=== PATIENT | male | born 2000 | race Caucasian/White ===

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

== ENCOUNTER 2021-07-23 16:35 | Emergency (ER) | payer OTHER ==
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
[2021-07-23 16:49] VITALS: O2SAT 98
[2021-07-23 18:14] VITALS: BP 125/76; PULSE 81
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
== END 2021-07-23 18:17 | disposition home or self-care (01) ==
LOC: ED 16:35
DX: S09.90XA Unspecified injury of head, initial encounter (principal); W10.9XXA Fall (on) (from) unspecified stairs and steps, initial encounter; R41.0 Disorientation, unspecified; R51.9 Headache, unspecified; R11.0 Nausea; Z72.0 Tobacco use; Z28.310 Unvaccinated for COVID-19
CPT/HCPCS: 70450; 99283

== ENCOUNTER 2021-09-14 19:56 | Emergency (ER) | payer OTHER ==
[2021-09-14 21:18] LABS: Mucus SLIGHT /HPF (NEGATIVE)
[2021-09-14 21:21] LABS: Appearance CLEAR (CLEAR); Bilirubin NEGATIVE (NEGATIVE); Dipstick done @ ? MAIN LAB; Glucose NEGATIVE (NEGATIVE); Ketones NEGATIVE (NEGATIVE); Nitrite NEGATIVE (NEGATIVE); Ph 6.5 (5-6); Protein,Urine Dip NEGATIVE (Negative); RBC NEGATIVE Ery/ul (0-5); Specific Gravity >=1.030 (1.005-1.025); Urobilinogen 0.2 mg/dL (0-1)
[2021-09-14 21:22] LABS: Urine Cultured Indicated? NO
[2021-09-14 21:38] LABS: Absolute Neutrophil Ct (ANC) 4.58 x10^3/uL (1.4-6.9); Basophil (Absolute #) 0.07 x10^3/uL (0-0.4); Eosinophil % 2.1 % (0.00-5.0); Eosinophil (Absolute #) 0.15 x10^3/uL (0-0.5); Hematocrit 43.4 % (42-50); Hemoglobin 14.8 g/dL (12.5-18.0); Lymphocyte (Absolute #) 1.75 x10^3/uL (1.0-4.6); Lymphocytes % 24.3 % (24.0-44.0); Mean Cell Volume 88.2 fL (78-100); Mean Corpuscular Hemoglobin 30.1 pg (26-32); Mean Corpuscular Hgb Concent. 34.1 g/dL (32-36); Mean Platelet Volume 11.3 fL (7.5-11.0); Monocyte (Absolute #) 0.63 x10^3/uL (0.0-1.3); Monocytes % 8.8 % (0.0-12.0); Neutrophil % 63.5 % (36.0-66.0); Platelet Count 194 x10^3/uL (150-450); Red Blood Count 4.92 x10^6/uL (4.1-5.6); White Blood Count 7.2 x10^3/uL (4.0-10.5)
[2021-09-14 21:53] LABS: ALBUMIN 4.2 g/dL (3.5-5.0); ALKALINE PHOSPHATASE 51 U/L (38-126); ANION GAP 11.3 MEQ/L (5-15); BLOOD UREA NITROGEN 14 mg/dL (9-20); CHLORIDE 102 mmol/L (98-107); Calcium 9.3 mg/dL (8.4-10.2); Carbon Dioxide 28 mmol/L (22-30); Creatinine 1 0.84 mg/dL (0.66-1.25); EST GLOMERULAR FILTRATION RATE > 60.0 ML/MIN; Glucose 99 mg/dL (74-106); Potassium 4.2 mmol/L (3.5-5.1); SGOT/AST 18 U/L (17-59); SGPT/ALT 13 U/L (0-50); SODIUM 138 mmol/L (137-145); Total Protein 7.2 g/dL (6.3-8.2)
--- NOTE | 2021-09-14 22:15 | ERPHSYRPT ---
- History of Present Illness Time Seen by Provider: 09/14/21 22:00 Historian: patient Exam Limitations: no limitations Patient Subjective Stated Complaint: maurice when I pee at times, flank pain, lower abd pain, frequent urination Triage Nursing Assessment: Pt ambulated into ER without diff. Pt c/o frequent urination, burning on urination, and difficulty getting steam going at times. Pt c/o flank pain and lower abd pain which started today. Pt has hx of chlymadia a few months ago but was retested and it came back negative. Pt has pink rash/irritation to bilat inner thighs. Physician History: Patient is a 21-year-old white male who presents with complaints of urinary frequency dysuria urgency and trouble starting his stream. He denies any fever chills or sweats he has some abdominal pain which is primarily suprapubic and bilateral flank. He did have an episode of chlamydia which was treated in April of this year. He denies any penile discharge. Activities at Onset: none Quality: cramping, stabbing Abdominal Pain Onset Location: suprapubic Severity of Pain-Max: moderate Severity of Pain-Current: mild Modifying Factors: Improves With: urinating Allergies/Adverse Reactions: No Known Drug Allergies Allergy (Verified 09/14/21 20:46) Hx Tetanus, Diphtheria Vaccination/Date Given: No Hx Influenza Vaccination/Date Given: No Hx Pneumococcal Vaccination/Date Given: No Immunizations Up to Date: No Travel Risk - International Travel Have you traveled outside of the country in past 3 weeks: No - Coronavirus Screening Are you exhibiting any of the following symptoms?: No Close contact with a COVID-19 positive Pt in past 14-21 Days: No - Vaccine Status Have you recieved a Covid-19 vaccination: No - Review of Systems Constitutional: No Fever, No Chills Eyes: No Symptoms Ears, Nose, & Throat: No Symptoms Respiratory: No Cough, No Dyspnea Cardiac: No Chest Pain, No Edema, No Syncope Abdominal/Gastrointestinal: Abdominal Pain, No Nausea, No Vomiting, No Diarrhea Genitourinary Symptoms: Dysuria, Frequency, Urgency, No Penile Discharge Musculoskeletal: No Back Pain, No Neck Pain Skin: No Rash Neurological: No Dizziness, No Focal Weakness, No Sensory Changes Psychological: No Symptoms Endocrine: No Symptoms All Other Systems: Reviewed and Negative - Past Medical History Pertinent Past Medical History: No Psycho-Social History: Anxiety, Attention Deficit Disorder, Depression - Past Surgical History Past Surgical History: Yes Other Surgical History: cyst removed - Social History Smoking Status: Current every day smoker How long have you smoked: 8 yrs Exposure to second hand smoke: No Drug Use: none Patient Lives Alone: No - Nursing Vital Signs Nursing Vital Signs: Initial Vital Signs Temperature 98.0 F 09/14/21 20:34 Pulse Rate 70 09/14/21 20:34 Respiratory Rate 18 09/14/21 20:34 Blood Pressure 133/95 09/14/21 20:34 O2 Sat by Pulse Oximetry 98 09/14/21 20:34 Pain Scale Pain Intensity 0 - Physical Exam General Appearance: mild distress, alert Eye Exam: PERRL/EOMI, eyes nml inspection Ears, Nose, Throat Exam: normal ENT inspection, pharynx normal, moist mucous membranes Neck Exam: normal inspection, non-tender, supple, full range of motion Respiratory Exam: normal breath sounds, lungs clear, No respiratory distress Cardiovascular Exam: regular rate/rhythm, normal heart sounds Gastrointestinal/Abdomen Exam: soft, No tenderness, No mass Male Genitalia Exam: normal genitalia, No penile discharge Back Exam: normal inspection, normal range of motion, No CVA tenderness, No vertebral tenderness Extremity Exam: normal inspection, normal range of motion, pelvis stable Neurologic Exam: alert, oriented x 3, cooperative, normal mood/affect, nml cerebellar function, sensation nml, No motor deficits Skin Exam: normal color, warm, dry SpO2: 96 - Course Nursing assessment & vital signs reviewed: Yes - CT Exams Abdomen/Pelvis CT Interpretation: Tele-radiologist Report, No appendicitis, Other (No acute intra-abdominal process identified) Ordered Tests: Active Orders 24 hr Category Date Time Status ABDOMEN AND PELVIS W/0 CONTRAS [CT] Stat Exams 09/14/21 21:24 Taken CBC W DIFF Stat Lab 09/14/21 21:36 Completed CMP Stat Lab 09/14/21 21:36 Completed UA W/RFX CULTURE Stat Lab 09/14/21 20:32 Completed Lab/Rad Data: Laboratory Result Diagrams 09/14/21 21:36 09/14/21 21:36 Laboratory Results 09/14/21 09/14/21 09/14/21 Range/Units 21:36 21:36 20:32 WBC 7.2 (4.0-10.5) x10^3/uL RBC 4.92 (4.1-5.6) x10^6/uL Hgb 14.8 (12.5-18.0) g/dL Hct 43.4 (42-50) % MCV 88.2 (78-100) fL MCH 30.1 (26-32) pg MCHC 34.1 (32-36) g/dL RDW 12.0 (11.5-14.0) % Plt Count 194 (150-450) x10^3/uL MPV 11.3 H (7.5-11.0) fL Gran % 63.5 (36.0-66.0) % Immature Gran % (Auto) 0.3 (0.00-0.4) % Nucleat RBC Rel Count 0.0 (0.00-0.1) % Eos # (Auto) 0.15 (0-0.5) x10^3/uL Immature Gran # (Auto) 0.02 (0.00-0.03) x10^3u/L Absolute Lymphs (auto) 1.75 (1.0-4.6) x10^3/uL Absolute Monos (auto) 0.63 (0.0-1.3) x10^3/uL Absolute Nucleated RBC 0.00 (0.00-0.01) x10^3u/L Lymphocytes % 24.3 (24.0-44.0) % Monocytes % 8.8 (0.0-12.0) % Eosinophils % 2.1 (0.00-5.0) % Basophils % 1.0 (0.0-0.4) % Absolute Granulocytes 4.58 (1.4-6.9) x10^3/uL Basophils # 0.07 (0-0.4) x10^3/uL Sodium 138 (137-145) mmol/L Potassium 4.2 (3.5-5.1) mmol/L Chloride 102 (98-107) mmol/L Carbon Dioxide 28 (22-30) mmol/L Anion Gap 11.3 (5-15) MEQ/L BUN 14 (9-20) mg/dL Creatinine 0.84 (0.66-1.25) mg/dL Estimated GFR > 60.0 ML/MIN Glucose 99 (74-106) mg/dL Calcium 9.3 (8.4-10.2) mg/dL Total Bilirubin 0.40 (0.2-1.3) mg/dL AST 18 (17-59) U/L ALT 13 (0-50) U/L Alkaline Phosphatase 51 (38-126) U/L Serum Total Protein 7.2 (6.3-8.2) g/dL Albumin 4.2 (3.5-5.0) g/dL Urinalys Dipstick Clnc MAIN LAB Urine Color YELLOW (YELLOW) Urine Appearance CLEAR (CLEAR) Urine pH 6.5 (5-6) Ur Specific [place] >=1.030 (1.005-1.025) POC Urine Protein Conf NEGATIVE (Negative) Urine Ketones NEGATIVE (NEGATIVE) Urine Nitrite NEGATIVE (NEGATIVE) Urine Bilirubin NEGATIVE (NEGATIVE) Urine Urobilinogen 0.2 (0-1) mg/dL Urine Leukocytes NEGATIVE (NEGATIVE) Urine WBC (Auto) NONE (0-5) /HPF Urine RBC (Auto) NONE (0-2) /HPF U Epithel Cells (Auto) NONE (FEW) /HPF Urine Bacteria (Auto) NONE (NEGATIVE) /HPF Urine RBC NEGATIVE (0-5) Ezra/ul Urine Mucus (Auto) SLIGHT (NEGATIVE) /HPF Ur Culture Indicated? NO Urine Glucose NEGATIVE (NEGATIVE) mg/dL - Progress Progress: unchanged - Departure Departure Disposition: Home Clinical Impression: Dysuria Condition: Stable Critical Care Time: No Referrals: SCOTT ZAMAN VALUE ENGINEER [Primary Care Provider] - Follow up/PCP as directed Instructions: Dysuria, Adult (DC) Prescriptions: Ciprofloxacin [Cipro 500 MG] 500 mg PO BID #14 tablet
[2021-09-14 22:31] VITALS: BP 123/79; PULSE 70
[2021-09-14 22:36] VITALS: O2SAT 96
--- NOTE | 2021-09-15 09:41 | XRAY ---
Indication: Abdomen pain and diarrhea. Difficulty urinating. Multiple contiguous axial images obtained through the abdomen and pelvis without contrast. Impression: None Lung bases clear. Heart not enlarged. Noncontrasted stomach and bowel loops appear nonobstructed with normal appendix. Mild diffuse scattered colonic fecal debris. Mild sigmoid diverticulosis without diverticulitis. No free fluid/air. Remaining liver, gallbladder, pancreas, spleen, adrenal glands, kidneys, ureters, bladder, and aorta are unremarkable for noncontrast exam. Osseous structures intact with incidental bilateral L5 spondylolysis with 1 mm anterolisthesis. No ventral or inguinal hernias. Impression: 1. Mild fecal stasis and sigmoid diverticulosis. 2. Incidental L5 spondylolysis with minimal grade [address] abdomen/pelvis without contrast exam is negative.
== END 2021-09-14 22:52 | disposition home or self-care (01) ==
LOC: ED 19:56
DX: R30.0 Dysuria (principal); R35.0 Frequency of micturition; R39.15 Urgency of urination; R10.2 Pelvic and perineal pain; Z72.0 Tobacco use; Z28.310 Unvaccinated for COVID-19
CPT/HCPCS: 36415; 74176; 80053; 81015; 85025; 99283

== ENCOUNTER 2022-11-23 11:36 | Emergency (ER) | payer BC, OTHER ==
--- NOTE | 2022-11-23 11:40 | ERPHSYRPT ---
- History of Present Illness Time Seen by Provider: 11/23/22 11:40 Source: patient Exam Limitations: no limitations Physician History: This is a 22-year-old white male patient who does not have a primary care provider, is not on any medications chronically has no known drug allergies and presents with right ankle injury and pain that occurred just prior to arrival to the emergency department. Patient jumped off the back of a trailer of a truck onto his right ankle and it rolled and he felt a popping sensation. It hurts to bear weight but he is able to do so. He presents to the emergency department with right foot and ankle pain. Method of Injury: fell (Patient actually jumped off the back of a trailer of a truck) Occurred: just prior to arrival Quality: constant, aching, throbbing Severity of Pain-Max: moderate Severity of Pain-Current: moderate Lower Extremities Pain: foot: right, ankle: right Modifying Factors: Improves With: movement Associated Symptoms: other (Hurts to bear weight but can do so) Allergies/Adverse Reactions: No Known Drug Allergies Allergy (Verified 11/23/22 11:43) Hx Tetanus, Diphtheria Vaccination/Date Given: No Hx Influenza Vaccination/Date Given: No Hx Pneumococcal Vaccination/Date Given: No Travel Risk - International Travel Have you traveled outside of the country in past 3 weeks: No - Coronavirus Screening Are you exhibiting any of the following symptoms?: No Close contact with a COVID-19 positive Pt in past 14-21 Days: No - Vaccine Status Have you recieved a Covid-19 vaccination: No - Review of Systems Constitutional: No Symptoms Eyes: No Symptoms Ears, Nose, & Throat: No Symptoms Respiratory: No Symptoms Cardiac: No Symptoms Abdominal/Gastrointestinal: No Symptoms Genitourinary Symptoms: No Symptoms Musculoskeletal: Injury (Right ankle) Skin: No Symptoms Neurological: No Symptoms Psychological: No Symptoms Endocrine: No Symptoms Hematologic/Lymphatic: No Symptoms Immunological/Allergic: No Symptoms All Other Systems: Reviewed and Negative - Past Medical History Pertinent Past Medical History: No Psycho-Social History: Anxiety, Attention Deficit Disorder, Depression - Past Surgical History Past Surgical History: Yes Other Surgical History: cyst removed - Social History Smoking Status: Current every day smoker How long have you smoked: 8 yrs Exposure to second hand smoke: No Drug Use: none Patient Lives Alone: No - Nursing Vital Signs Nursing Vital Signs: Initial Vital Signs Temperature 97.2 F 10/11/23 11:44 Pulse Rate 79 11/23/22 11:44 Respiratory Rate 18 11/23/22 11:44 Blood Pressure 116/76 11/23/22 11:44 O2 Sat by Pulse Oximetry 100 11/23/22 11:44 Pain Scale Pain Intensity 9 - Physical Exam General Appearance: no apparent distress, alert, anxiety Eyes, Ears, Nose, Throat Exam: normal ENT inspection, moist mucous membranes Neck Exam: normal inspection, non-tender, supple, full range of motion Cardiovascular/Respiratory Exam: chest non-tender, no respiratory distress Gastrointestinal/Abdominal Exam: non-tender Back Exam: normal inspection, normal range of motion, No CVA tenderness, No vertebral tenderness Hips Exam: bilateral: non-tender, normal inspection, normal range of motion, no evidence of injury Legs Exam: bilateral leg: non-tender, normal inspection, normal range of motion, no evidence of injury Knees Exam: bilateral knee: non-tender, normal inspection, normal range of motion, no evidence of injury Ankle Exam: right ankle: bone tenderness, limited range of motion, soft tissue tenderness, swelling (Mild, lateral malleoli region), left ankle: non-tender, normal inspection, normal range of motion, no evidence of injury Foot Exam: right foot: soft tissue tenderness, left foot: non-tender, normal range of motion, bilateral foot: normal inspection, no evidence of injury Neuro/Tendon Exam: normal sensation, normal motor functions, normal tendon functions, responds to pain, no evidence tendon injury Mental Status Exam: alert, oriented x 3, cooperative Skin Exam: normal color, warm, dry SpO2 Interpretation: normal O2 Delivery: Room Air - Course Nursing assessment & vital signs reviewed: Yes Ordered Tests: Active Orders 24 hr Category Date Time Status ANKLE (3 VIEWS) Stat Exams 11/23/22 11:40 Completed FOOT (MINIMUM 3 VIEWS) Stat Exams 11/23/22 11:40 Completed Medication Summary Discontinued Medications Generic Name Dose Route Start Last Admin Trade Name Aicha PRN Reason Stop Dose Admin Ibuprofen 600 mg 11/23/22 11:48 11/23/22 11:53 Ibuprofen 600 Mg Tablet PO 11/23/22 11:49 600 mg STAT ONE Administration Ibuprofen Confirm 11/23/22 11:53 Ibuprofen 600 Mg Tablet Administered 11/23/22 11:54 Dose 600 mg .ROUTE .STK-MED ONE Oxycodone/Acetaminophen 1 tab 11/23/22 11:48 11/23/22 11:54 Oxycodone Hcl/Apap 5 Mg/325 Mg Tablet PO 11/23/22 11:49 1 tab STAT STA Administration Oxycodone/Acetaminophen Confirm 11/23/22 11:53 Oxycodone Hcl/Apap 5 Mg/325 Mg Tablet Administered 11/23/22 11:54 Dose 1 tab .ROUTE .STK-MED ONE - Progress Progress: unchanged Progress Note: 11/23/22 11:47 This patient's medical issue is 1 of low complexity. The level of complexity in the work-up performed is based on review of the patient's past medical history, review the patient's drug allergy list, review the patient's medication list, review of the patient's history present illness and physical findings on examination. The work-up in this patient includes x-ray of the patient's right foot and ankle. 11/23/22 12:27 I interpreted the x-rays of the right foot and right ankle. I do not appreciate an acute fracture or dislocation on either film. I did wait until the radiologist over read to be sure that the patient is discharged to home with similar findings. Counseled pt/family regarding: diagnosis, need for follow-up, rad results Medical Desision Making - Independent Historian Additional History obtained from: Relative/friend - Diagnostic Testing Diagnostic test were ordered, analyzed, and reviewed by me: Yes Radiological Interpretation: Interpreted by me - Risk of complications The pt has a mod risk of morbidity or mortality based on: Need for prescription drug management - Departure Departure Disposition: Home Clinical Impression: Right ankle sprain Condition: Stable Critical Care Time: No Additional Instructions: Ice pack to right foot and ankle 3 times a day for the next 48 hours. Use ibuprofen 600 mg orally 3 times a day for the next 5 days. Weightbearing as tolerated. If symptoms have not improved in the next 48 hours, may follow-up with Dr. Araya (podiatry) here at [facility] or you may be evaluated at the walk-in orthopedic clinic here at [facility] Monday through Monday 8 AM to 10 AM. They do not require an appointment. Take your other medication as prescribed. Wear your Nacho wrap and use your crutches as needed Forms: Work/School Release Form Prescriptions: Oxycodone HCl/Acetaminophen [Percocet 5-325 mg Tablet] 1 each PO Q8H PRN PRN #6 tablet MDD 3 PRN Reason: Moderate To Severe Pain
[2022-11-23 11:52] VITALS: BP 116/76; PULSE 79; RESP 18; TEMP 97.2; O2SAT 100
[2022-11-23] MEDS ORDERED: MOTRIN 600 MG ONE (11:53)
[2022-11-23] MEDS ORDERED: PERCOCET TABLET 5/325MG ONE (11:53)
[2022-11-23] MEDS: MOTRIN 600 MG PO ONE (11:53)
[2022-11-23] MEDS: PERCOCET TABLET 5/325MG PO STA (11:54)
--- NOTE | 2022-11-23 12:20 | XRAY ---
Indication: Pain following fall. Comparison: None 3 nonweightbearing views right foot obtained. No bony, articular, or soft tissue abnormalities.
--- NOTE | 2022-11-23 12:20 | XRAY ---
Indication: Pain following fall. Comparison: None 3 view right ankle demonstrates minimal anterolateral soft tissue swelling. No other bony, articular, or soft tissue abnormalities.
== END 2022-11-23 12:58 | disposition home or self-care (01) ==
LOC: ED 11:36
DX: S93.401A Sprain of unspecified ligament of right ankle, initial encounter (principal); Y93.39 Activity, other involving climbing, rappelling and jumping off; Y99.0 Civilian activity done for income or pay; Z28.310 Unvaccinated for COVID-19; Z72.0 Tobacco use
CPT/HCPCS: 73610; 73630; 80307; 99283; A9270-GY

== ENCOUNTER 2024-01-01 09:10 | Day surgery (SDC) | payer OTHER ==
--- NOTE | 2024-01-01 07:57 | HP ---
HISTORY OF PRESENT ILLNESS: A 23-year-old with history of back draining at times. Also has history of nodule on the scalp. Also desires excisions. PAST MEDICAL HISTORY: Anxiety, depression. PAST SURGICAL HISTORY: He had a lymph node excised in the past from cat scratch fever, he had a pilonidal cyst in the past. FAMILY HISTORY: Negative with regard to this problem. SOCIAL HISTORY: A 9-xymn-j-day smoker. Occasional alcohol use. MEDICATIONS: Lexapro and buspirone. ALLERGIES: No known drug allergies. REVIEW OF SYSTEMS: Twelve systems reviewed. No chest pain or palpitations. Other systems negative or noncontributory as above and per preadmission questionnaire. PHYSICAL EXAMINATION: GENERAL: Height 6 feet. BMI 29.16. No acute distress. HEENT: Sclerae anicteric. NECK: No JVD. CHEST: Equal excursion, nonlabored breathing. CARDIOVASCULAR: Regular rate and rhythm. ABDOMEN: Soft. EXTREMITIES: No significant edema. NEUROLOGIC: Alert and oriented. Moving extremities symmetrically. PSYCHIATRIC: Appropriate mood and affect. SKIN: Scalp nodular cyst, as well as back ruptured cyst site. IMPRESSION: Cyst of the back, draining. Scalp cyst or nodule, enlarging. Recommend excision. He was explained the risks in detail including bleeding, infection, risk of hematoma, seroma formation, possible need for packing; risk of wound dehiscence, possibly requiring packing at a later date; general risk of aches, pains, burning or numbness, possibly long-term in nature; general risk of anesthesia, DVT, PE, or pneumonia but not limited to. The patient understands and agreed with planned procedure. Otherwise, continue medications for anxiety and depression. PLAN: Outpatient, general, excisional biopsy of ruptured cyst site, back, and scalp cyst or nodule as an outpatient.
[~2024-01-01 09:10] MED LIST: Sensorcaine 0.25% 10 ML ONE
[2024-01-01] MEDS: CEFAZOLIN 2 GM/100 ML NaCl 2 GM/100 ML IVPB IV SCH (09:53)
[2024-01-01] MEDS: Lactated Ringers 1,000 ML IV SCH (09:53)
[2024-01-01 09:58] VITALS: RESP 16
[2024-01-01] MEDS ORDERED: Sensorcaine 0.25% 10 ML ONE (11:29)
[2024-01-01] MEDS ORDERED: Versed 2 MG/2 ML Injection ONE (12:08)
[2024-01-01] MEDS ORDERED: DIPRIVAN 200 MG/20 ML IV ONE (12:08)
[2024-01-01] MEDS ORDERED: ROCURONIUM BROMIDE IV ONE ×2 (12:08→12:46)
[2024-01-01] MEDS ORDERED: SUBLIMAZE 100 MCG/2 ML ONE ×3 (12:08→13:36)
[2024-01-01] MEDS ORDERED: BRIDION 200MG/2ML IV ONE (13:06)
[2024-01-01] MEDS ORDERED: TORAdol 30 mg Injection ONE (13:07)
[2024-01-01] MEDS ORDERED: BACIGUENT 30 GM ONE (13:14)
[2024-01-01] MEDS ORDERED: Hydromorphone 1 mg/ml Injection ONE (14:04)
[2024-01-01 14:48] VITALS: O2SAT 98
[2024-01-01 14:54] VITALS: BP 138/72; PULSE 72; TEMP 97.2
--- NOTE | 2024-01-03 09:22 | OP ---
SURGERY DATE/TIME: 01/01/2024 [id number] PREOPERATIVE DIAGNOSES: 1) Enlarging scalp nodule, needing excision. 2) Draining ruptured back cyst site, needing excision. POSTOPERATIVE DIAGNOSES: 1) Subfascial, submuscular lipomatous density, scalp. 2) Ruptured back cyst site. PROCEDURE: 1) Excisional biopsy of deep submuscular, subfascial lipomatous density, scalp (approximately 1.8 cm) with intermediate closure. 2) Excisional biopsy of ruptured back cyst site, (approximately 2.5 cm with margin). SURGEON: Lisandro Mccracken MD ANESTHESIA: General. ESTIMATED BLOOD LOSS: Minimal. INDICATIONS: Consent was obtained. DESCRIPTION OF PROCEDURE AND FINDINGS: Patient was taken to the operating room. General anesthesia was induced. Placed in the prone position. Appropriately padded and positioned per Anesthesia and OR staff. Staff had elected to trim the hair in a wider area prior to my arrival in the operating room. He was prepped and draped in the usual sterile fashion. After official time-out, no disagreement in planned procedure. Starting with the scalp, there was what seemed to be a mobile density that seemed to be much deeper than a usual scalp cyst site. A small segment of skin over the top was dissected down through the normal-appearing subcutaneous down to level of the muscle and fascia. Underneath this muscle and fascia, appeared to be a mobile density. The fascia was incised and appeared to be a lipomatous-type density underneath. This was slowly, carefully freed from its attachments deeper. It measured about 1.8 cm in size. Passed off to Pathology. There was a pulsatile little vessel running through the area. It was controlled with 3-0 Vicryl suture ligature. Good hemostasis noted. The wound was irrigated out. There was no other palpable nodules or cysts in the area. This area had been marked and confirmed with the patient in the preop holding area. Good hemostasis was noted. The fascia was closed with running 3-0 Vicryl. Skin closed with interrupted 3-0 Prolene. Good hemostasis noted. Attention was then turned to the back. A new setup was used, new gloves. Marking out and around this area it had some indurated area and small pits over the top. Dissection was carried deep down and surrounded this indurated area down to normal-appearing deep subcutaneous. Measured about 2.5 cm with margins. Passed off to Pathology. Good hemostasis noted. Deep and superficial subcutaneous closed with 3-0 Vicryl. Skin closed with 4-0 Vicryl. Interrupted 3-0 Prolene was used to reinforce the area. Steri-Strips and sterile dressing applied. The patient tolerated the procedure well. There were no immediate complications.
== END 2024-01-01 14:57 | disposition home or self-care (01) ==
LOC: SDC 09:10
PROVIDERS: ATTEND Surgery
DX: L72.0 Epidermal cyst (principal); D23.4 Other benign neoplasm of skin of scalp and neck
CPT/HCPCS: J0690; J1171; J1885; J2250; J2704; J3010; A9270-GY